=== PATIENT | male | born 1975 | race Two or more races ===

== ENCOUNTER 2023-09-08 12:24 | Emergency (ER) | payer MEDICAID ==
[~2023-09-08] VITALS: Ht 172.7 cm; Wt 81.6 kg
[2023-09-08 12:39] VITALS: O2SAT 99
[2023-09-08] MEDS ORDERED: BICT1TAB PO (13:17)
[2023-09-08 15:10] VITALS: BP 128/68; PULSE 80; RESP 16; TEMP 98.4
== END 2023-09-08 15:17 | disposition home or self-care (01) ==
LOC: ER 13:28
DX: B20 Human immunodeficiency virus [HIV] disease (principal); J45.909 Unspecified asthma, uncomplicated; Z76.0 Encounter for issue of repeat prescription
CPT/HCPCS: 99281; 99283

== ENCOUNTER 2023-11-01 01:47 | Emergency (ER) | payer MEDICAID ==
[~2023-11-01] VITALS: Ht 172.7 cm; Wt 86.2 kg
[~2023-11-01 01:47] MED LIST: BICT1TAB PO
[2023-11-01 01:51] VITALS: O2SAT 99
[2023-11-01] MEDS ORDERED: LORAZEPAM 0.5MG TABLET PO ONE (02:15)
[2023-11-01] MEDS ORDERED: LORAZEPAM 2MG/ML INJ IM ONE (02:45)
[2023-11-01] MEDS: LORAZEPAM 0.5MG TABLET PO NR (02:59)
[2023-11-01] MEDS: LORAZEPAM 2MG/ML INJ IM NR (03:00)
[2023-11-01] MEDS: DIPHENHYDRAMINE 25MG CAPSULE PO ONE (03:39)
[2023-11-01 04:01] VITALS: BP 125/83; PULSE 76; RESP 18; TEMP 98.4
== END 2023-11-01 04:07 | disposition home or self-care (01) ==
LOC: ER 02:08
DX: F10.10 Alcohol abuse, uncomplicated (principal); J45.909 Unspecified asthma, uncomplicated; Y90.9 Presence of alcohol in blood, level not specified
CPT/HCPCS: 96372; 99283; Q0163; J2060; Z7610